=== PATIENT | male | born 1980 | race Hispanic/Latino ===

== ENCOUNTER 2016-11-23 14:34 | Emergency (ER) | payer OTHER ==
[2016-11-23] MEDS ORDERED: Acetaminophen 500 MG TAB ONE (14:52)
[2016-11-23 15:48] LABS: #Basophils 0.1 thou/uL (0.0-0.2); #Eosinphils 0.2 thou/uL (0.0-0.7); #Monocytes 1.1 thou/uL (0.11-0.59); #Neutrophils 10.6 thou/uL (1.40-6.50); %Basophils 0.5 % (0.0-1.0); %Eosinophils 1.7 % (0.0-10.0); %Lymphocytes 7.9 % (21.0-51.0); %Monocytes 8.7 % (0.0-10.0); Hematocrit 53.2 % (42.0-52.0); Mean Platelet Volume 7.9 fL (7.4-10.4); Red Blood Cell (RBC) Count 5.82 mill/uL (4.70-6.10); White Blood Cell (WBC) Count 13.1 thou/uL (4.8-10.8)
--- NOTE | 2016-11-23 15:48 | RAD ---
PORTABLE CHEST ONE VIEW: Date: 11-23-16 Time: 3:38 p.m. History: Cough, fever, flu-like symptoms. FINDINGS: Comparison is made with exam of 03-12-15. The heart size is normal. The lungs are expanded without focal areas of consolidation, pneumothorax, or pleural effusions. IMPRESSION: No radiographic evidence of acute cardiopulmonary process. POS: [facility]
[2016-11-23 16:04] LABS: ALT (SGPT) 22 U/L (8-55); AST (SGOT) 17 U/L (5-34); Alkaline Phosphatase 109 U/L (40-150); Anion Gap 14 mmol/L (10-20); BUN (Urea Nitrogen) 18 mg/dL (8.9-20.6); Bilirubin, Total 0.5 mg/dL (0.2-1.2); Calc. Creatinine Clearance 0 mL/min (70-130); Calcium 10.1 mg/dL (7.8-10.44); Carbon Dioxide 28 mmol/L (22-29); Chloride 99 mmol/L (98-107); Estimated GFR-MDRD 78; Globulin 4.3 g/dL (2.4-3.5); Protein, Total 8.7 g/dL (6.0-8.3)
[2016-11-23] MEDS ORDERED: Ketorolac Tromethamine 30 MG/ML VIAL ONE (16:28)
[2016-11-23] MEDS ORDERED: cefTRIAXone\\ROCEPHIN 2 GM VIAL ONE (16:49)
== END 2016-11-23 17:28 | disposition home or self-care (01) ==
LOC: ERS 14:34
DX: J06.9 Acute upper respiratory infection, unspecified (principal); E78.5 Hyperlipidemia, unspecified; I10 Essential (primary) hypertension; Z79.899 Other long term (current) drug therapy
CPT/HCPCS: 36415; 71010; 80053; 85025; 93005; 96361; 96365; 96375; J0696; J1885

== ENCOUNTER 2016-11-24 10:37 | Outpatient (CLI) | payer OTHER ==
--- NOTE | 2016-11-24 12:35 | RAD ---
LUMBAR SPINE 3 VIEWS: Date: 11/24/16 HISTORY: Low back pain. FINDINGS/IMPRESSION: Comparison made with exam of 12/10/1011. Grade I anterolisthesis of L5 over S1 is stable. Mild degenerative changes in the lower lumbar spine are again seen. No compression fracture or bony destruction is identified. POS: [facility]
== END 2016-11-24 10:38 | disposition home or self-care (01) ==
LOC: RAD-FRANK 10:37
PROVIDERS: ATTEND Nurse Practitioner Family
DX: M54.9 Dorsalgia, unspecified (principal); M47.816 Spondylosis without myelopathy or radiculopathy, lumbar region; M43.17 Spondylolisthesis, lumbosacral region
CPT/HCPCS: 72100

== ENCOUNTER 2017-01-25 21:50 | Emergency (ER) | payer OTHER ==
--- NOTE | 2017-01-25 22:25 | RAD ---
TWO VIEWS FIFTH DIGIT LEFT HAND 01/25/17 HISTORY: Trauma. Finger caught between two boards with left fifth digit pain. AP and lateral views fifth digit left hand is obtained. No evidence of acute fracture, subluxations or bony lesions seen. IMPRESSION: Normal two views fifth digit left hand. POS: [facility]
== END 2017-01-25 23:42 | disposition home or self-care (01) ==
LOC: ERS 21:50
DX: S67.197A Crushing injury of left little finger, initial encounter (principal); E78.5 Hyperlipidemia, unspecified; I10 Essential (primary) hypertension; Z79.899 Other long term (current) drug therapy; W23.1XXA Caught, crushed, jammed, or pinched between stationary objects, initial encounter

== ENCOUNTER 2017-05-25 14:46 | Emergency (ER) | payer OTHER | END 2017-05-25 15:25 | disposition home or self-care (01) | LOC: ERS 14:46 | DX: J06.9 Acute upper respiratory infection, unspecified (principal); E78.5 Hyperlipidemia, unspecified; I10 Essential (primary) hypertension | CPT/HCPCS: 99282 ==

== ENCOUNTER 2017-07-09 21:54 | Emergency (ER) | payer OTHER ==
[2017-07-09] MEDS ORDERED: Lidocaine 1% w/Epinephrine 1:100K 20 ML VIAL ONE (22:36)
== END 2017-07-09 23:10 | disposition home or self-care (01) ==
LOC: ERS 21:54
DX: L02.214 Cutaneous abscess of groin (principal); E78.5 Hyperlipidemia, unspecified; I10 Essential (primary) hypertension; Z79.899 Other long term (current) drug therapy
CPT/HCPCS: 56405; J2001

== ENCOUNTER 2017-07-15 21:44 | Emergency (ER) | payer OTHER ==
[2017-07-15] MEDS ORDERED: Lidocaine 1% w/Epinephrine 1:100K 20 ML VIAL ONE (22:07)
== END 2017-07-15 23:16 | disposition home or self-care (01) ==
LOC: ERS 21:44
DX: L02.31 Cutaneous abscess of buttock (principal); E78.5 Hyperlipidemia, unspecified; I10 Essential (primary) hypertension; Z79.899 Other long term (current) drug therapy
CPT/HCPCS: 10060; J2001

== ENCOUNTER 2017-12-05 11:24 | Emergency (ER) | payer OTHER ==
[2017-12-05] MEDS ORDERED: Metoclopramide HCl 10 MG/2 ML VIAL ONE (13:35)
[2017-12-05 14:14] LABS: #Basophils 0.1 thou/uL (0.0-0.2); #Eosinphils 0.2 thou/uL (0.0-0.7); #Lymphocytes 1.6 thou/uL (1.20-3.40); #Monocytes 0.6 thou/uL (0.11-0.59); #Neutrophils 5.7 thou/uL (1.40-6.50); %Basophils 0.9 % (0.0-1.0); %Eosinophils 1.8 % (0.0-10.0); %Lymphocytes 19.8 % (21.0-51.0); %Monocytes 7.3 % (0.0-10.0); %Neutrophils 70.2 % (42.0-75.0); Hemoglobin 16.3 g/dL (14.0-18.0); Mean Corpuscular HGB CONC 32.9 g/dL (32.0-36.0); Mean Corpuscular Hemoglobin 29.5 pg (27.0-31.0); Mean Corpuscular Volume 89.6 fL (78.0-98.0); Mean Platelet Volume 8.8 fL (7.4-10.4); Platelet Count 298 thou/uL (130-400); RBC Distribution Width 12.1 % (11.5-14.5); Red Blood Cell (RBC) Count 5.53 mill/uL (4.70-6.10); White Blood Cell (WBC) Count 8.2 thou/uL (4.8-10.8)
[2017-12-05 14:32] LABS: ALT (SGPT) 21 U/L (8-55); AST (SGOT) 18 U/L (5-34); Albumin 4.4 g/dL (3.5-5.0); Alkaline Phosphatase 87 U/L (40-150); Anion Gap 12 mmol/L (10-20); BUN (Urea Nitrogen) 13 mg/dL (8.9-20.6); Bilirubin, Total 0.4 mg/dL (0.2-1.2); CK (CPK) 233 U/L (30-200); Calc. Creatinine Clearance 0 mL/min (70-130); Carbon Dioxide 26 mmol/L (22-29); Chloride 104 mmol/L (98-107); Estimated GFR-MDRD Greater than 90; Globulin 3.2 g/dL (2.4-3.5); Glucose 93 mg/dL (70-105); Potassium 4.1 mmol/L (3.5-5.1); Protein, Total 7.6 g/dL (6.0-8.3); Sodium 138 mmol/L (136-145)
[2017-12-05 14:37] LABS: CKMB 3.3 ng/mL (0-6.6); Troponin I Less than 0.010 ng/mL (< 0.028)
== END 2017-12-05 16:05 | disposition home or self-care (01) ==
LOC: ERS 11:24
DX: R42 Dizziness and giddiness (principal); I10 Essential (primary) hypertension; Z79.899 Other long term (current) drug therapy
CPT/HCPCS: 80053; 82553; 84484; 85025; 85379; 93005; 96365; J2765

== ENCOUNTER 2018-01-09 12:25 | Emergency (ER) | payer OTHER ==
[2018-01-09 13:12] LABS: Bilirubin Negative (Negative); Blood, Urine Negative (Negative); Clarity CLEAR (Clear); Glucose, Urine (Dipstick) Negative (Negative); Leukocyte Negative (Negative); Nitrite Negative (Negative); Protein, Urine (Dipstick) Negative (Neg-Trace)
[2018-01-09 13:19] LABS: #Eosinphils 0.5 thou/uL (0.0-0.7); #Lymphocytes 2.1 thou/uL (1.20-3.40); #Monocytes 0.9 thou/uL (0.11-0.59); #Neutrophils 4.9 thou/uL (1.40-6.50); %Basophils 0.5 % (0.0-1.0); %Eosinophils 6.3 % (0.0-10.0); %Lymphocytes 24.7 % (21.0-51.0); %Neutrophils 58.5 % (42.0-75.0); Hemoglobin 16.5 g/dL (14.0-18.0); Mean Corpuscular HGB CONC 33.9 g/dL (32.0-36.0); Mean Corpuscular Hemoglobin 29.9 pg (27.0-31.0); Mean Corpuscular Volume 88.1 fL (78.0-98.0); Mean Platelet Volume 8.7 fL (7.4-10.4); Platelet Count 302 thou/uL (130-400); RBC Distribution Width 12.1 % (11.5-14.5); Red Blood Cell (RBC) Count 5.51 mill/uL (4.70-6.10); White Blood Cell (WBC) Count 8.4 thou/uL (4.8-10.8)
[2018-01-09 13:35] LABS: ALT (SGPT) 30 U/L (8-55); AST (SGOT) 21 U/L (5-34); Albumin 3.9 g/dL (3.5-5.0); Alkaline Phosphatase 100 U/L (40-150); Anion Gap 14 mmol/L (10-20); BUN (Urea Nitrogen) 16 mg/dL (8.9-20.6); Bilirubin, Total 0.4 mg/dL (0.2-1.2); Calc. Creatinine Clearance 0 mL/min (70-130); Calcium 9.6 mg/dL (7.8-10.44); Carbon Dioxide 23 mmol/L (22-29); Chloride 105 mmol/L (98-107); Estimated GFR-MDRD 88; Globulin 3.7 g/dL (2.4-3.5); Glucose 120 mg/dL (70-105); Lipase 35 U/L (8-78); Potassium 4.1 mmol/L (3.5-5.1); Protein, Total 7.6 g/dL (6.0-8.3); Sodium 138 mmol/L (136-145)
== END 2018-01-09 15:37 | disposition home or self-care (01) ==
LOC: ERS 12:25
DX: R10.13 Epigastric pain (principal); E78.5 Hyperlipidemia, unspecified; I10 Essential (primary) hypertension; Z79.899 Other long term (current) drug therapy
CPT/HCPCS: 36415; 80053; 81003; 83690; 85025; 99284

== ENCOUNTER 2018-05-16 20:21 | Emergency (ER) | payer OTHER ==
[2018-05-16] MEDS ORDERED: Ketorolac Tromethamine 60 MG/2 ML VIAL ONE (21:36)
== END 2018-05-16 21:52 | disposition home or self-care (01) ==
LOC: ERS 20:21
DX: M54.5 Low back pain (principal); G89.29 Other chronic pain; E78.5 Hyperlipidemia, unspecified; I10 Essential (primary) hypertension; Z79.899 Other long term (current) drug therapy
CPT/HCPCS: 96372; J1885

== ENCOUNTER 2018-07-01 17:01 | Emergency (ER) | payer OTHER ==
[2018-07-01] MEDS ORDERED: Dexamethasone 4 MG TAB ONE (17:51)
== END 2018-07-01 18:24 | disposition home or self-care (01) ==
LOC: ERS 17:01
DX: M54.42 Lumbago with sciatica, left side (principal); I10 Essential (primary) hypertension; E78.5 Hyperlipidemia, unspecified; Z79.891 Long term (current) use of opiate analgesic
CPT/HCPCS: 99283; J8540

== ENCOUNTER 2018-07-04 10:27 | Outpatient (CLI) | payer OTHER ==
--- NOTE | 2018-07-04 10:58 | RAD ---
LUMBAR SPINE 3 VIEWS: HISTORY: Low back pain COMPARISON: 11/24/2016 FINDINGS: Grade 1 anterolisthesis of L5 over S1 is stable. Degenerative changes in the lumbar spine are again n oted. No compression fracture or bony destruction is identified. There are pars articularis defects at L5.
== END 2018-07-04 10:28 | disposition home or self-care (01) ==
LOC: RAD-FRANK 10:27
PROVIDERS: ATTEND Nurse Practitioner Family
DX: M43.16 Spondylolisthesis, lumbar region (principal)
CPT/HCPCS: 72100

== ENCOUNTER 2018-08-03 21:34 | Emergency (ER) | payer OTHER ==
--- NOTE | 2018-08-03 22:04 | RAD ---
XR Chest 1 View Portable History: Syncope Comparison: Radiograph 2017 Findings: Lungs are clear. No pneumothorax or effusion. Cardiac silhouette and mediastinal contours a re within normal limits. Impression: No acute intrathoracic abnormality.
== END 2018-08-04 00:40 | disposition home or self-care (01) ==
LOC: ERS 21:34
DX: E86.0 Dehydration (principal); I10 Essential (primary) hypertension; E78.5 Hyperlipidemia, unspecified; Z79.82 Long term (current) use of aspirin; Z79.891 Long term (current) use of opiate analgesic; Z79.899 Other long term (current) drug therapy
CPT/HCPCS: 36416; 71045; 93005; 96360; 96361

== ENCOUNTER 2018-10-15 18:35 | Emergency (ER) | payer OTHER ==
[2018-10-15] MEDS ORDERED: Ketorolac Tromethamine 30 MG/ML VIAL ONE (19:08)
== END 2018-10-15 20:00 | disposition home or self-care (01) ==
LOC: ERS 18:35
DX: J02.9 Acute pharyngitis, unspecified (principal); E78.5 Hyperlipidemia, unspecified; E78.00 Pure hypercholesterolemia, unspecified; I10 Essential (primary) hypertension; Z79.899 Other long term (current) drug therapy
CPT/HCPCS: 87081; 87430; 96372; 99283; J1885

== ENCOUNTER 2018-11-12 17:18 | Emergency (ER) | payer OTHER ==
--- NOTE | 2018-11-12 18:03 | RAD ---
Radiograph right foot 3 views: HISTORY: Status post penetrating trauma, stepped on glass FINDINGS: No radiopaque foreign body or subcutaneous emphysema identified. No fracture or dislocation. IMPRESSION: No acute traumatic injury identified.
[2018-11-12] MEDS ORDERED: Bacitracin 1 PK ONE (19:05)
[2018-11-12] MEDS ORDERED: Ibuprofen 200 MG TAB ONE (19:05)
[2018-11-12] MEDS ORDERED: Adacel (T-DAP) 0.5 ML SYRINGE ONE (19:05)
== END 2018-11-12 19:29 | disposition home or self-care (01) ==
LOC: ERS 17:18
DX: S91.331A Puncture wound without foreign body, right foot, initial encounter (principal); E78.5 Hyperlipidemia, unspecified; E78.00 Pure hypercholesterolemia, unspecified; I10 Essential (primary) hypertension; Z79.899 Other long term (current) drug therapy; W18.02XA Striking against glass with subsequent fall, initial encounter
CPT/HCPCS: 90471; 90715

== ENCOUNTER 2018-11-23 13:28 | Emergency (ER) | payer OTHER ==
[2018-11-23] MEDS ORDERED: Acetaminophen 500 MG TAB ONE (13:54)
== END 2018-11-23 14:37 | disposition home or self-care (01) ==
LOC: ERS 13:28
DX: J06.9 Acute upper respiratory infection, unspecified (principal); E78.5 Hyperlipidemia, unspecified; E78.00 Pure hypercholesterolemia, unspecified; I10 Essential (primary) hypertension; Z79.899 Other long term (current) drug therapy
CPT/HCPCS: 99281

== ENCOUNTER 2018-12-04 13:14 | Observation (INO) | payer OTHER ==
[2018-12-04] MEDS ORDERED: Bupivacaine 0.5% 10 ML VIAL ONE (13:26)
[2018-12-04] MEDS ORDERED: Lidocaine 1% (PF) 30 ML VIAL ONE (13:26)
--- NOTE | 2018-12-04 14:08 | RAD ---
3 views of the left third finger: 12/04/2018 COMPARISON: None HISTORY: Injury, trauma, pain FINDINGS: There is prominent soft tissue injury involving the distal aspect of the third digit. The d istal aspect of the third distal phalanx appears exposed. The medial aspect of the distal tuft of the third distal phalanx appears absent suggesting partial amputation. The oblique views suggest a po ssible fracture at the tip of the third distal phalanx, not optimally assessed secondary to overlapping gauze and associated artifact. IMPRESSION: Partial amputation involving the distal aspect of the third digit including a portion of the third distal phalanx and the associated soft tissues.
[2018-12-04] MEDS ORDERED: Gentamicin 80 MG/2 ML VIAL ONE (14:35)
[2018-12-04] MEDS ORDERED: Gentamicin Sulfate 80 MG in Premix Bag 1 BAG IVPB SCH (14:45)
[2018-12-04] MEDS ORDERED: PROPOFOL 200 MG/20 ML VIAL ONE (15:14)
[2018-12-04] MEDS ORDERED: Ondansetron PF 4 MG/2 ML Vial ONE (15:14)
[2018-12-04] MEDS ORDERED: Dexamethasone 20 MG/5 ML VIAL ONE (15:14)
[2018-12-04] MEDS ORDERED: Lidocaine 1% PF 5 ML VIAL ONE (15:14)
[2018-12-04] MEDS ORDERED: Dextrose 5 % And 0.9 % NaCl 1,000 ML IV SCH (19:45)
[2018-12-04] MEDS ORDERED: Bupivacaine PF 0.5% 30 ML VIAL ONE (20:15)
[2018-12-04] MEDS ORDERED: Bacitracin Zinc Ointment 30 gm TUBE ONE (20:15)
[2018-12-04] MEDS ORDERED: Sodium Chloride 0.9% 30 ML ONE (20:15)
[2018-12-04] MEDS ORDERED: Fentanyl 100 MCG/2 ML VIAL ONE ×2 (21:19→23:25)
[2018-12-04 21:30] VITALS: BMI 36.6
[2018-12-04] MEDS ORDERED: Promethazine HCl 25 MG/ML VIAL IM PRN (23:10)
[2018-12-04] MEDS ORDERED: Ondansetron HCl/PF 4 MG/2 ML Vial IVP PRN (23:10)
[2018-12-04] MEDS ORDERED: Promethazine HCl 25 MG/ML VIAL SLOW IVP PRN (23:10)
[2018-12-05] MEDS ORDERED: HYDROcodone/Acetaminophen 7.5/325 mg Tablet PO PRN (00:16)
[2018-12-05] MEDS ORDERED: Ondansetron PF 4 MG/2 ML Vial SLOW IVP PRN (00:16)
[2018-12-05] MEDS ORDERED: Morphine 4 MG/ML VIAL SLOW IVP PRN (00:16)
[2018-12-05] MEDS ORDERED: Ondansetron ODT 4 MG TAB PO PRN (00:17)
[2018-12-05] MEDS ORDERED: Vancomycin HCl 1 GM in Premix Bag 1 BAG IVPB SCH (02:00)
[2018-12-05] MEDS ORDERED: FLU VACC QS2019-20(6MOS UP)/PF 60 MCG/0.5 ML SYRINGE IM ONE (09:00)
[2018-12-05] MEDS ORDERED: Lisinopril 10 MG TAB PO SCH (15:00)
[2018-12-05 15:07] VITALS: TEMP 98.5
[2018-12-05 18:43] VITALS: BP 142/86
[2018-12-06] MEDS ORDERED: Lisinopril 20 MG TAB PO SCH (09:00)
--- NOTE | 2018-12-06 11:06 | OP ---
DATE OF PROCEDURE: 12/04/2018 PREOPERATIVE DIAGNOSES: 1. Left middle finger open distal phalanx fracture. 2. Left middle finger nailbed laceration. 3. Left middle finger full-thickness skin loss, 2 x 1 cm. 4. Open treatment, distal phalanx fracture. PROCEDURES PERFORMED: 1. Debridement of wound. 2. Debridement of bone. 3. Nail bed repair. 4. Full-thickness skin graft, 2 x 1 cm, harvest from the left ipsilateral and anterior antecubital fossa. 5. Open treatment distal phalanx fracture, left middle finger. COMPLICATIONS: None. INJECTABLE: 20 mL of 0.5% Marcaine, 10 given at the digit and 10 at the harvest site for the skin graft. BLOOD LOSS: 20 mL. TOURNIQUET TIME: None. FINDINGS: Full-thickness skin loss with minimal amount of exposed bone and comminuted fracture requiring debridement of material of open fracture. DESCRIPTION OF PROCEDURE: After successful general endotracheal anesthesia, the limb was prepped and draped. The patient had the wound inspected, there was a marked comminuted area of the distal phalanx fracture where he primarily had lost almost all skin except for a small corner fragment that was unstable for fixation, so treatment for this open fracture was excise this bone piece. We then debrided the bone and the skin using the following techniques; 1. Treasure blade. 2. Curette. 3. Pulsavac 3 L with antibiotics inside. 4. Excisional technique. 5. Include the bone. 6. There was no gross infection. We then finished the similar debridement of the soft tissue which was separate because the soft tissue edge was 2 cm proximal to the bone edge, so this was a separate soft tissue debridement. Using the same techniques, we removed denuded skin, however, we added a tenotomy scissor. This also was treated with irrigation. We then realized that the patient had a nail bed laceration that was oblique, Y-shaped and we then repaired it using interrupted 5-0 chromic. Now, the bone was completely covered with soft tissue or nail bed. We then realized we had a 2 x 1 cm defect. We went to the proximal antecubital region, after giving the injection as listed above, harvested an elliptical shape graft that would be appropriate size, defatted it, and placed it on the soft tissue, bringing it up to the nail bed using a running 5-0 chromic. We also had running sutures to attach 360 degrees in all sides, had two bolster stitches put on the radial and ulnar aspect. Once it was placed in appropriate position, we then bolstered officially with Adaptic and bacitracin on top of the graft and mineral oil soaked cotton ball on top of the bacitracin and Adaptic to control the graft and decrease motion for healing potential. We then obtained hemostasis at all sites, we closed the proximal antecubital fossa incision with a running 4-0 chromic and was excellent of opposition. We then just added Dermabond. A bulky dressing was applied both sites along with Kerlix, Nikita wrap, and 4x4s and the patient left the operating room without evidence of anesthetic or operative complication. Job ID: [id number]
== END 2018-12-05 19:28 | disposition home or self-care (01) ==
LOC: ERS 13:14 → SURG A 19:21
PROVIDERS: ADMIT Orthopaedic Surgery Hand Surgery; ATTEND Orthopaedic Surgery Hand Surgery
PROC: 0PBV0ZZ Excision of Left Finger Phalanx, Open Approach (ICD-10-PCS; principal; 2018-12-04)
PROC: 0HQQXZZ Repair Finger Nail, External Approach (ICD-10-PCS; 2018-12-04)
PROC: 0HRGX73 Replacement of Left Hand Skin with Autologous Tissue Substitute, Full Thickness, External Approach (ICD-10-PCS; 2018-12-04)
DX: S62.633B Displaced fracture of distal phalanx of left middle finger, initial encounter for open fracture (principal); I10 Essential (primary) hypertension; E78.00 Pure hypercholesterolemia, unspecified; E78.5 Hyperlipidemia, unspecified; Z79.899 Other long term (current) drug therapy; W24.0XXA Contact with lifting devices, not elsewhere classified, initial encounter
CPT/HCPCS: 64450; 96365; 96366; 96367; G0378; G0390; J0690; J1100; J1580; J2001; J2405; J2704; J3010; J3370; J3490; S0020

== ENCOUNTER 2019-07-29 14:24 | Outpatient (CLI) | payer OTHER ==
--- NOTE | 2019-07-29 15:08 | RAD ---
LUMBAR SPINE 3 VIEWS: Date: 07/29/2019 HISTORY: Pain. COMPARISON: Radiograph dated 07/04/2018. FINDINGS: Low grade levoscoliosis lumbar spine. There are bilateral pars interarticularis defects at L5 with Gr susannah II anterolisthesis of approximately 1.0 cm. Moderate L5-S1 degenerative disc space height loss. IMPRESSION: Slightly progressive L5-S1 anterolisthesis due to pars interarticularis defects. POS: [facility]
== END 2019-07-29 14:25 | disposition home or self-care (01) ==
LOC: RAD-FRANK 14:24
PROVIDERS: ATTEND Nurse Practitioner Family
DX: M46.90 Unspecified inflammatory spondylopathy, site unspecified (principal); M43.17 Spondylolisthesis, lumbosacral region
CPT/HCPCS: 72100

== ENCOUNTER 2019-09-18 13:00 | Outpatient (CLI) | payer OTHER ==
--- NOTE | 2019-09-18 13:27 | RAD ---
EXAM: XR Lumbar Spine Min 4 View PROVIDED CLINICAL HISTORY: Lumbar spondylolisthesis. Low back pain for many years which is gotten worse. Patient now complains o f pain extending down left leg. COMPARISON: 07/29/2019 FINDINGS: Grade 1 anterolisthesis of L5 on S1 is again seen which measures approximately 12 mm. No abnormal tra nslational motion is seen between the flexion-extension views of the lumbar spine. Mild narrowing of the L5-S1 intervertebral disc space is present. Bilateral pars defects are again seen at this leve l. The vertebral body heights are within normal limits. No fracture is seen involving the lumbar spine. Osteophytes are seen anteriorly involving the lower lumbar spine. Views of the lower lumbar spine are overall similar to the prior study. IMPRESSION: Stable spondylolisthesis lumbosacral junction. Mild degenerative changes are seen in the lower lumbar spine.
== END 2019-09-18 13:01 | disposition home or self-care (01) ==
LOC: BICRAD 13:00
DX: M43.16 Spondylolisthesis, lumbar region (principal); M54.30 Sciatica, unspecified side; M79.605 Pain in left leg; M47.816 Spondylosis without myelopathy or radiculopathy, lumbar region; M43.17 Spondylolisthesis, lumbosacral region
CPT/HCPCS: 72110

== ENCOUNTER 2019-11-04 00:24 | Emergency (ER) | payer OTHER ==
[2019-11-04 01:02] LABS: #Basophils 0.1 thou/uL (0.0-0.2); #Eosinphils 1.9 thou/uL (0.0-0.7); #Lymphocytes 3.1 thou/uL (1.20-3.40); #Monocytes 1.1 thou/uL (0.11-0.59); #Neutrophils 6.5 thou/uL (1.40-6.50); %Basophils 1.1 % (0.0-1.0); %Eosinophils 14.6 % (0.0-10.0); %Lymphocytes 24.5 % (21.0-51.0); %Monocytes 8.7 % (0.0-10.0); %Neutrophils 51.2 % (42.0-75.0); Hemoglobin 15.7 g/dL (14.0-18.0); Mean Corpuscular HGB CONC 34.2 g/dL (32.0-36.0); Mean Corpuscular Hemoglobin 30.6 pg (27.0-31.0); Mean Corpuscular Volume 89.4 fL (78.0-98.0); Mean Platelet Volume 8.6 fL (7.4-10.4); Platelet Count 284 thou/uL (130-400); RBC Distribution Width 12.4 % (11.5-14.5); Red Blood Cell (RBC) Count 5.14 mill/uL (4.70-6.10); White Blood Cell (WBC) Count 12.8 thou/uL (4.8-10.8)
[2019-11-04 01:12] LABS: PTT 29.7 sec (22.9-36.1); Prothrombin Time 12.8 sec (12.0-14.7)
[2019-11-04 01:34] LABS: ALT (SGPT) 25 U/L (8-55); AST (SGOT) 21 U/L (5-34); Albumin 3.9 g/dL (3.5-5.0); Alkaline Phosphatase 99 U/L (40-110); Anion Gap 14 mmol/L (10-20); BUN (Urea Nitrogen) 24 mg/dL (8.9-20.6); Bilirubin, Total 0.3 mg/dL (0.2-1.2); Calc. Creatinine Clearance 0 mL/min (70-130); Calcium 8.9 mg/dL (7.8-10.44); Carbon Dioxide 22 mmol/L (22-29); Chloride 105 mmol/L (98-107); Estimated GFR-MDRD Greater than 90; Globulin 3.3 g/dL (2.4-3.5); Glucose 107 mg/dL (70-105); Potassium 3.9 mmol/L (3.5-5.1); Protein, Total 7.2 g/dL (6.0-8.3); Sodium 137 mmol/L (136-145)
--- NOTE | 2019-11-04 07:21 | RAD ---
Exam: Chest one view HISTORY:Chest pain. Comparison: 08/03/2018 FINDINGS: Cardiac silhouette: Normal Aorta: Unremarkable Pulmonary vessels: Normal Costophrenic angles: Clear LUNGS: No masses or consolidation. Pneumothorax: None Osseous abnormalities: None IMPRESSION: No acute cardiopulmonary process.
== END 2019-11-04 03:41 | disposition home or self-care (01) ==
LOC: ERS 00:24
DX: R07.89 Other chest pain (principal); I10 Essential (primary) hypertension; E78.5 Hyperlipidemia, unspecified; K21.9 Gastro-esophageal reflux disease without esophagitis; E78.00 Pure hypercholesterolemia, unspecified; Z79.899 Other long term (current) drug therapy
CPT/HCPCS: 36415; 71045; 80053; 83880; 84484; 85025; 85610; 85730; 93005

== ENCOUNTER 2019-12-21 16:06 | Emergency (ER) | payer OTHER ==
[2019-12-21] MEDS ORDERED: Ibuprofen 200 MG TAB ONE (16:53)
--- NOTE | 2019-12-21 16:53 | RAD ---
XR Chest 1 View Portable HISTORY: Cough COMPARISON: 11/04/2019 FINDINGS: The heart size is normal. The lungs are well expanded without focal areas of consolidation, pneumothorax or pleural effusions. IMPRESSION: No radiographic evidence of acute cardiopulmonary process.
== END 2019-12-21 18:13 | disposition home or self-care (01) ==
LOC: ERS 16:06
DX: B34.9 Viral infection, unspecified (principal); E78.00 Pure hypercholesterolemia, unspecified; E78.5 Hyperlipidemia, unspecified; I10 Essential (primary) hypertension; Z79.899 Other long term (current) drug therapy
CPT/HCPCS: 71045; 87081; 87430; 87804

== ENCOUNTER 2019-12-29 10:20 | Emergency (ER) | payer OTHER ==
[2019-12-29 10:54] LABS: #Eosinphils 0.9 thou/uL (0.0-0.7); #Monocytes 0.8 thou/uL (0.11-0.59); #Neutrophils 5.7 thou/uL (1.40-6.50); %Basophils 0.4 % (0.0-1.0); %Eosinophils 9.4 % (0.0-10.0); %Lymphocytes 21.2 % (21.0-51.0); %Monocytes 8.6 % (0.0-10.0); %Neutrophils 60.4 % (42.0-75.0); Hemoglobin 16.3 g/dL (14.0-18.0); Mean Corpuscular HGB CONC 33.1 g/dL (32.0-36.0); Mean Corpuscular Hemoglobin 29.6 pg (27.0-31.0); Mean Corpuscular Volume 89.6 fL (78.0-98.0); Platelet Count 180 thou/uL (130-400); RBC Distribution Width 12.2 % (11.5-14.5); Red Blood Cell (RBC) Count 5.49 mill/uL (4.70-6.10); White Blood Cell (WBC) Count 9.4 thou/uL (4.8-10.8)
--- NOTE | 2019-12-29 11:11 | RAD ---
Chest AP view INDICATION: Shortness of breath and cough; history of Covid infection COMPARISON: December 21, 2019 FINDINGS: Lungs: There is some crowding of the pulmonary vasculature are within both lower lobes without defin ite acute airspace opacity. Some of this is related to the depth of inspiration. Cardiac silhouette: The cardiomediastinal silhouette appears within normal limits. Pulmonary vasculature: Normal Pleural spaces: No pleural effusion or pneumothorax is demonstrated. Upper abdomen: No abnormality seen. Osseous structures: No acute osseous abnormality. Additional findings: None. IMPRESSION: No acute cardiopulmonary abnormality.
[2019-12-29] MEDS ORDERED: Ketorolac Tromethamine 30 MG/ML VIAL ONE (11:37)
[2019-12-29 12:19] LABS: Albumin 3.4 g/dL (3.5-5.0)
[2019-12-29 12:20] LABS: Chloride 108 mmol/L (98-107); Potassium 3.8 mmol/L (3.5-5.1); Sodium 139 mmol/L (136-145)
[2019-12-29 12:21] LABS: Calcium 8.2 mg/dL (7.8-10.44)
[2019-12-29 12:22] LABS: Globulin 3.3 g/dL (2.4-3.5); Glucose 105 mg/dL (70-105); Protein, Total 6.7 g/dL (6.0-8.3)
[2019-12-29 12:23] LABS: Anion Gap 12 mmol/L (10-20); Bilirubin, Total 0.3 mg/dL (0.2-1.2); Carbon Dioxide 23 mmol/L (22-29)
[2019-12-29 12:24] LABS: Alkaline Phosphatase 97 U/L (40-110)
[2019-12-29 12:25] LABS: Calc. Creatinine Clearance 0 mL/min (70-130); Estimated GFR-MDRD Greater than 90
[2019-12-29 12:26] LABS: BUN (Urea Nitrogen) 16 mg/dL (8.9-20.6)
[2019-12-29 12:27] LABS: ALT (SGPT) 25 U/L (8-55); AST (SGOT) 18 U/L (5-34)
--- NOTE | 2020-01-04 17:08 | EKG ---
Test Reason : Blood Pressure : / mmHG Vent. Rate : 072 BPM Atrial Rate : 072 BPM P-R Int : 184 ms QRS Dur : 102 ms QT Int : 376 ms P-R-T Axes : 020 088 -01 degrees QTc Int : 411 ms Normal sinus rhythm Abnormal QRS-T angle, consider primary T wave abnormality Abnormal ECG Confirmed by MCKINLEY GUALLPA DO ([id number]), development editor MEGAN DOLAN ([id number]) on 01/04/2020 5:07:36 PM Referred By: Confirmed By:MCKINLEY GUALLPA DO
== END 2019-12-29 12:58 | disposition home or self-care (01) ==
LOC: ERS 10:20
DX: U07.1 COVID-19 (principal); R07.9 Chest pain, unspecified; E78.5 Hyperlipidemia, unspecified; E78.00 Pure hypercholesterolemia, unspecified; I10 Essential (primary) hypertension; K21.9 Gastro-esophageal reflux disease without esophagitis; Z79.899 Other long term (current) drug therapy
CPT/HCPCS: 36415; 71045; 80053; 83605; 84484; 85025; 93005; 96374; J1885

== ENCOUNTER 2020-03-02 12:40 | Emergency (ER) | payer OTHER | END 2020-03-02 14:42 | disposition home or self-care (01) | LOC: ERS 12:40 | DX: M54.5 Low back pain (principal); E78.5 Hyperlipidemia, unspecified; E78.00 Pure hypercholesterolemia, unspecified; I10 Essential (primary) hypertension; Z79.899 Other long term (current) drug therapy | CPT/HCPCS: 93005 ==

== ENCOUNTER 2020-04-28 16:41 | Emergency (ER) | payer OTHER ==
[2020-04-28] MEDS ORDERED: Diazepam 5 MG TAB ONE (17:20)
== END 2020-04-28 17:21 | disposition home or self-care (01) ==
LOC: ERS 16:41
DX: S39.012A Strain of muscle, fascia and tendon of lower back, initial encounter (principal); E78.5 Hyperlipidemia, unspecified; I10 Essential (primary) hypertension; Z79.899 Other long term (current) drug therapy; X58.XXXA Exposure to other specified factors, initial encounter
CPT/HCPCS: 99283

== ENCOUNTER 2021-01-23 23:30 | Emergency (ER) | payer OTHER ==
[2021-01-24] MEDS ORDERED: Ciprofloxacin 500 MG TAB ONE (00:02)
[2021-01-24] MEDS ORDERED: metroNIDAZOLE 250 MG TAB ONE (00:02)
[2021-01-24 00:17] LABS: #Basophils 0.1 thou/uL (0.0-0.2); #Eosinphils 0.7 thou/uL (0.0-0.7); #Lymphocytes 2.4 thou/uL (1.20-3.40); #Monocytes 0.9 thou/uL (0.11-0.59); #Neutrophils 7.4 thou/uL (1.40-6.50); %Basophils 1.2 % (0.0-1.0); %Eosinophils 5.7 % (0.0-10.0); %Lymphocytes 21.2 % (21.0-51.0); %Monocytes 8.1 % (0.0-10.0); %Neutrophils 63.8 % (42.0-75.0); Hemoglobin 16.2 g/dL (14.0-18.0); Mean Corpuscular Volume 91.3 fL (78.0-98.0); Mean Platelet Volume 8.2 fL (7.4-10.4); Platelet Count 309 thou/uL (130-400); RBC Distribution Width 12.3 % (11.5-14.5); Red Blood Cell (RBC) Count 5.21 mill/uL (4.70-6.10); White Blood Cell (WBC) Count 11.5 thou/uL (4.8-10.8)
[2021-01-24 00:22] LABS: Bilirubin Negative (Negative); Blood, Urine Negative (Negative); Clarity Clear (Clear); Glucose, Urine (Dipstick) Normal (Negative); Ketone, Urine Negative (Negative); Leukocyte Negative Leu/uL (Negative); Nitrite Negative (Negative); Protein, Urine (Dipstick) Negative (Neg-Trace); Specific Gravity, Urine 1.012 (1.002-1.036); Urobilinogen Normal mg/dL (Less than 2); pH, Urine 6.5 (5.0-9.0)
[2021-01-24 00:47] LABS: ALT (SGPT) 24 U/L (8-55); AST (SGOT) 26 U/L (5-34); Albumin 3.7 g/dL (3.5-5.0); Alkaline Phosphatase 92 U/L (40-110); Anion Gap 15 mmol/L (10-20); BUN (Urea Nitrogen) 13 mg/dL (8.9-20.6); Bilirubin, Total 0.2 mg/dL (0.2-1.2); Calc. Creatinine Clearance 0 mL/min (70-130); Calcium 9.4 mg/dL (7.8-10.44); Carbon Dioxide 20 mmol/L (22-29); Chloride 105 mmol/L (98-107); Globulin 4.1 g/dL (2.4-3.5); Glucose 139 mg/dL (70-105); Lipase 33 U/L (8-78); Potassium 3.9 mmol/L (3.5-5.1); Protein, Total 7.8 g/dL (6.0-8.3); Sodium 136 mmol/L (136-145)
== END 2021-01-24 01:21 | disposition home or self-care (01) ==
LOC: ERS 23:30
DX: K57.92 Diverticulitis of intestine, part unspecified, without perforation or abscess without bleeding (principal); K21.9 Gastro-esophageal reflux disease without esophagitis; E78.5 Hyperlipidemia, unspecified; I10 Essential (primary) hypertension; Z79.82 Long term (current) use of aspirin; Z79.899 Other long term (current) drug therapy
CPT/HCPCS: 36415; 80053; 81003; 83690; 85025; 99284

== ENCOUNTER 2021-07-31 09:13 | Emergency (ER) | payer OTHER ==
[2021-07-31 09:47] LABS: #Basophils 0.1 thou/uL (0.0-0.2); #Eosinphils 0.4 thou/uL (0.0-0.7); #Lymphocytes 2.4 thou/uL (1.20-3.40); #Monocytes 0.9 thou/uL (0.11-0.59); #Neutrophils 4.5 thou/uL (1.40-6.50); %Basophils 0.9 % (0.0-1.0); %Eosinophils 5.3 % (0.0-10.0); %Lymphocytes 29.3 % (21.0-51.0); %Monocytes 10.7 % (0.0-10.0); %Neutrophils 53.9 % (42.0-75.0); Hemoglobin 16.7 g/dL (14.0-18.0); Mean Corpuscular HGB CONC 33.7 g/dL (32.0-36.0); Mean Corpuscular Hemoglobin 30.6 pg (27.0-31.0); Mean Platelet Volume 8.1 fL (7.4-10.4); Platelet Count 279 thou/uL (130-400); RBC Distribution Width 12.3 % (11.5-14.5); Red Blood Cell (RBC) Count 5.46 mill/uL (4.70-6.10); White Blood Cell (WBC) Count 8.3 thou/uL (4.8-10.8)
[2021-07-31] MEDS ORDERED: Ketorolac Tromethamine 30 MG/ML VIAL ONE (09:52)
[2021-07-31 10:07] LABS: ALT (SGPT) 32 U/L (8-55); AST (SGOT) 25 U/L (5-34); Albumin 4.1 g/dL (3.5-5.0); Alkaline Phosphatase 98 U/L (40-110); Anion Gap 12 mmol/L (10-20); BUN (Urea Nitrogen) 19 mg/dL (8.9-20.6); Bilirubin, Total 0.7 mg/dL (0.2-1.2); CK (CPK) 355 U/L (30-200); Calc. Creatinine Clearance 0 mL/min (70-130); Calcium 9.5 mg/dL (7.8-10.44); Carbon Dioxide 27 mmol/L (22-29); Chloride 102 mmol/L (98-107); Globulin 3.6 g/dL (2.4-3.5); Glucose 95 mg/dL (70-105); Lipase 29 U/L (8-78); Potassium 3.8 mmol/L (3.5-5.1); Protein, Total 7.7 g/dL (6.0-8.3); Sodium 137 mmol/L (136-145)
== END 2021-07-31 11:10 | disposition home or self-care (01) ==
LOC: ERS 09:13
DX: S29.011A Strain of muscle and tendon of front wall of thorax, initial encounter (principal); E78.5 Hyperlipidemia, unspecified; E78.00 Pure hypercholesterolemia, unspecified; I10 Essential (primary) hypertension; K21.9 Gastro-esophageal reflux disease without esophagitis; Z79.82 Long term (current) use of aspirin; Z79.899 Other long term (current) drug therapy; X58.XXXA Exposure to other specified factors, initial encounter
CPT/HCPCS: 71045; 80053; 82550; 83690; 84484; 85025; 93005; 96374; J1885

== ENCOUNTER 2021-12-06 10:04 | Emergency (ER) | payer OTHER ==
[2021-12-06 10:56] LABS: #Basophils 0.1 thou/uL (0.0-0.2); #Eosinphils 0.3 thou/uL (0.0-0.7); #Lymphocytes 1.5 thou/uL (1.20-3.40); #Monocytes 0.8 thou/uL (0.11-0.59); #Neutrophils 7.5 thou/uL (1.40-6.50); %Basophils 0.6 % (0.0-1.0); %Eosinophils 3.1 % (0.0-10.0); %Lymphocytes 14.4 % (21.0-51.0); %Monocytes 7.8 % (0.0-10.0); %Neutrophils 74.1 % (42.0-75.0); Hemoglobin 15.9 g/dL (14.0-18.0); Mean Corpuscular HGB CONC 32.8 g/dL (32.0-36.0); Mean Corpuscular Volume 91.5 fL (78.0-98.0); Mean Platelet Volume 8.7 fL (7.4-10.4); Platelet Count 270 thou/uL (130-400); Red Blood Cell (RBC) Count 5.29 mill/uL (4.70-6.10); White Blood Cell (WBC) Count 10.1 thou/uL (4.8-10.8)
[2021-12-06 11:02] LABS: Bilirubin Negative (Negative); Blood, Urine Negative (Negative); Clarity Clear (Clear); Glucose, Urine (Dipstick) Normal (Negative); Ketone, Urine Negative (Negative); Leukocyte Negative Leu/uL (Negative); Nitrite Negative (Negative); Protein, Urine (Dipstick) 70 mg/dL (Neg-Trace); RBC/HPF 0-3 HPF (0-3); Specific Gravity, Urine 1.022 (1.002-1.036); Squamous Epithelial 0-3 HPF (0-3); Urobilinogen Normal mg/dL (Less than 2)
[2021-12-06 11:18] LABS: Bacteria/HPF 1+ HPF (None Seen)
[2021-12-06 11:21] LABS: ALT (SGPT) 26 U/L (8-55); AST (SGOT) 22 U/L (5-34); Albumin 3.9 g/dL (3.5-5.0); Alkaline Phosphatase 89 U/L (40-110); Anion Gap 14 mmol/L (10-20); BUN (Urea Nitrogen) 15 mg/dL (8.9-20.6); Bilirubin, Total 0.4 mg/dL (0.2-1.2); Calc. Creatinine Clearance 0 mL/min (70-130); Calcium 9.4 mg/dL (7.8-10.44); Carbon Dioxide 21 mmol/L (22-29); Chloride 107 mmol/L (98-107); Estimated GFR 117; Globulin 3.4 g/dL (2.4-3.5); Glucose 100 mg/dL (70-105); Potassium 4.7 mmol/L (3.5-5.1); Protein, Total 7.3 g/dL (6.0-8.3); Sodium 137 mmol/L (136-145)
== END 2021-12-06 10:56 | disposition home or self-care (01) ==
LOC: ERS 10:04
DX: S39.012A Strain of muscle, fascia and tendon of lower back, initial encounter (principal); E78.00 Pure hypercholesterolemia, unspecified; E78.5 Hyperlipidemia, unspecified; I10 Essential (primary) hypertension; Z79.899 Other long term (current) drug therapy; X58.XXXA Exposure to other specified factors, initial encounter
CPT/HCPCS: 36415; 80053; 81003; 81015; 85025; 99283

== ENCOUNTER 2021-12-15 09:18 | Emergency (ER) | payer OTHER | END 2021-12-15 11:53 | disposition home or self-care (01) | LOC: ERS 09:18 | DX: B34.9 Viral infection, unspecified (principal); E78.00 Pure hypercholesterolemia, unspecified; E78.5 Hyperlipidemia, unspecified; I10 Essential (primary) hypertension; K21.9 Gastro-esophageal reflux disease without esophagitis; Z79.899 Other long term (current) drug therapy | CPT/HCPCS: 71045 ==

== ENCOUNTER 2021-12-24 11:38 | Emergency (ER) | payer OTHER ==
[~2021-12-24 11:38] MED LIST: Iopamidol-370 76% 500 ML 1 ML ONE
[2021-12-24 12:15] LABS: #Basophils 0.1 thou/uL (0.0-0.2); #Eosinphils 0.2 thou/uL (0.0-0.7); #Lymphocytes 2.5 thou/uL (1.20-3.40); #Neutrophils 9.4 thou/uL (1.40-6.50); %Basophils 0.6 % (0.0-1.0); %Eosinophils 1.6 % (0.0-10.0); %Monocytes 7.8 % (0.0-10.0); %Neutrophils 70.9 % (42.0-75.0); Hemoglobin 16.2 g/dL (14.0-18.0); Mean Corpuscular HGB CONC 32.8 g/dL (32.0-36.0); Mean Corpuscular Hemoglobin 30.2 pg (27.0-31.0); Mean Corpuscular Volume 92.2 fl (78.0-98.0); Mean Platelet Volume 8.5 fL (7.4-10.4); Platelet Count 272 10x3/uL (130-400); Red Blood Cell (RBC) Count 5.37 mill/uL (4.70-6.10); White Blood Cell (WBC) Count 13.3 10x3/uL (4.8-10.8)
[2021-12-24 12:37] LABS: ALT (SGPT) 20 U/L (8-55); AST (SGOT) 17 U/L (5-34); Albumin 3.9 g/dL (3.5-5.0); Alkaline Phosphatase 98 U/L (40-110); Anion Gap 14 mmol/L (10-20); BUN (Urea Nitrogen) 19 mg/dL (8.9-20.6); Bilirubin, Total 0.6 mg/dL (0.2-1.2); Calc. Creatinine Clearance 0 mL/min (70-130); Calcium 9.5 mg/dL (7.8-10.44); Carbon Dioxide 26 mmol/L (22-29); Chloride 103 mmol/L (98-107); Estimated GFR 109; Globulin 3.5 g/dL (2.4-3.5); Glucose 101 mg/dL (70-105); Lipase 21 U/L (8-78); Potassium 4.6 mmol/L (3.5-5.1); Protein, Total 7.4 g/dL (6.0-8.3); Sodium 138 mmol/L (136-145)
== END 2021-12-24 13:50 | disposition home or self-care (01) ==
LOC: ERS 11:38
DX: K57.92 Diverticulitis of intestine, part unspecified, without perforation or abscess without bleeding (principal); Z79.82 Long term (current) use of aspirin
CPT/HCPCS: 36415; 74177; 80053; 83690; 85025; 86140; Q9967

== ENCOUNTER 2021-12-27 01:36 | Inpatient (IN) | payer OTHER ==
[2021-12-27] MEDS ORDERED: Pantoprazole 40 MG VIAL ONE (01:55)
[2021-12-27 02:04] LABS: #Basophils 0.1 thou/uL (0.0-0.2); #Eosinphils 0.5 thou/uL (0.0-0.7); #Lymphocytes 1.9 thou/uL (1.20-3.40); #Monocytes 1.4 thou/uL (0.11-0.59); #Neutrophils 8.6 thou/uL (1.40-6.50); %Basophils 0.4 % (0.0-1.0); %Eosinophils 3.9 % (0.0-10.0); %Neutrophils 69.7 % (42.0-75.0); Hemoglobin 15.9 g/dL (14.0-18.0); Mean Corpuscular HGB CONC 34.7 g/dL (32.0-36.0); Mean Corpuscular Hemoglobin 31.9 pg (27.0-31.0); Mean Platelet Volume 8.6 fL (7.4-10.4); Platelet Count 256 10x3/uL (130-400); RBC Distribution Width 12.1 % (11.5-14.5); Red Blood Cell (RBC) Count 4.99 mill/uL (4.70-6.10); White Blood Cell (WBC) Count 12.3 10x3/uL (4.8-10.8)
[2021-12-27 02:23] LABS: ALT (SGPT) 20 U/L (8-55); AST (SGOT) 16 U/L (5-34); Albumin 3.6 g/dL (3.5-5.0); Alkaline Phosphatase 81 U/L (40-110); Anion Gap 12 mmol/L (10-20); BUN (Urea Nitrogen) 18 mg/dL (8.9-20.6); Bilirubin, Total 0.3 mg/dL (0.2-1.2); Calc. Creatinine Clearance 0 mL/min (70-130); Calcium 8.8 mg/dL (7.8-10.44); Carbon Dioxide 24 mmol/L (22-29); Chloride 105 mmol/L (98-107); Estimated GFR 112; Globulin 3.6 g/dL (2.4-3.5); Glucose 136 mg/dL (70-105); Lipase 23 U/L (8-78); Potassium 3.7 mmol/L (3.5-5.1); Protein, Total 7.2 g/dL (6.0-8.3); Sodium 137 mmol/L (136-145)
[2021-12-27] MEDS ORDERED: Ondansetron PF 4 MG/2 ML Vial ONE (03:58)
[2021-12-27] MEDS ORDERED: Piperacillin/Tazobactam 4.5 GM VIAL ONE (04:58)
[2021-12-27] MEDS ORDERED: Morphine 4 MG/ML VIAL ONE (05:08)
[2021-12-27] MEDS ORDERED: metroNIDAZOLE 500 MG in Premix Bag 1 BAG IVPB SCH (06:00)
[2021-12-27 06:23] VITALS: BMI 39.2
[2021-12-27] MEDS ORDERED: Ondansetron ODT 4 MG TAB SL PRN (06:30)
[2021-12-27] MEDS ORDERED: Acetaminophen 325 MG TAB PO PRN (06:30)
[2021-12-27] MEDS ORDERED: Ondansetron PF 4 MG/2 ML Vial IVP PRN (06:30)
[2021-12-27 07:17] LABS: Bilirubin Negative (Negative); Blood, Urine Negative (Negative); Clarity Clear (Clear); Glucose, Urine (Dipstick) Normal (Negative); Ketone, Urine Negative (Negative); Leukocyte Negative Leu/uL (Negative); Nitrite Negative (Negative); Protein, Urine (Dipstick) Negative (Neg-Trace); Urobilinogen Normal mg/dL (Less than 2); pH, Urine 7.5 (5.0-9.0)
[2021-12-27 07:18] LABS: Specific Gravity, Urine 1.048 (1.002-1.036)
[2021-12-27] MEDS ORDERED: Sodium Chloride 0.9% 1,000 ML IV SCH (08:15)
[2021-12-27] MEDS: Lisinopril 10 MG TAB PO SCH (08:48)
[2021-12-27] MEDS: Sodium Chloride 0.9% 1,000 ML IV SCH ×3 (08:48→22:59)
[2021-12-27] MEDS: Pantoprazole 40 MG VIAL IVP SCH ×2 (08:50→20:24)
[2021-12-27] MEDS: Morphine 4 MG/ML VIAL SLOW IVP PRN (13:33)
[2021-12-27] MEDS: metroNIDAZOLE 500 MG in Premix Bag 1 BAG IVPB SCH ×2 (13:36→22:01)
[2021-12-27] MEDS ORDERED: Iopamidol-370 76% 500 ML 1 ML ONE (14:01)
[2021-12-27] MEDS ORDERED: Ketorolac Tromethamine 30 MG/ML VIAL IVP PRN (19:00)
[2021-12-27] MEDS: Lactated Ringer's 1,000 ML IV SCH (20:22)
[2021-12-27] MEDS: Enoxaparin Sodium 40 MG/0.4 ML SYRINGE SC SCH ×2 (20:24→20:56)
[2021-12-27] MEDS: Atorvastatin Calcium 40 MG TAB PO SCH (20:25)
[2021-12-28] MEDS: Morphine 4 MG/ML VIAL SLOW IVP PRN (01:30)
[2021-12-28] MEDS ORDERED: Promethazine HCl 25 MG in Sodium Chloride 0.9% 50 ML IVPB PRN (03:07)
[2021-12-28] MEDS ORDERED: Promethazine 25 MG TAB PO PRN (03:08)
[2021-12-28 05:28] LABS: #Eosinphils 0.5 thou/uL (0.0-0.7); #Lymphocytes 1.9 thou/uL (1.20-3.40); #Monocytes 1.2 thou/uL (0.11-0.59); #Neutrophils 6.8 thou/uL (1.40-6.50); %Basophils 0.3 % (0.0-1.0); %Eosinophils 4.6 % (0.0-10.0); %Lymphocytes 18.2 % (21.0-51.0); %Monocytes 11.3 % (0.0-10.0); %Neutrophils 65.5 % (42.0-75.0); Hemoglobin 14.4 g/dL (14.0-18.0); Mean Corpuscular HGB CONC 32.7 g/dL (32.0-36.0); Mean Corpuscular Hemoglobin 30.1 pg (27.0-31.0); Mean Corpuscular Volume 92.2 fl (78.0-98.0); Mean Platelet Volume 8.4 fL (7.4-10.4); Platelet Count 281 10x3/uL (130-400); RBC Distribution Width 12.1 % (11.5-14.5); Red Blood Cell (RBC) Count 4.77 mill/uL (4.70-6.10); White Blood Cell (WBC) Count 10.3 10x3/uL (4.8-10.8)
[2021-12-28] MEDS: metroNIDAZOLE 500 MG in Premix Bag 1 BAG IVPB SCH ×3 (05:35→22:03)
[2021-12-28 06:34] LABS: Anion Gap 12 mmol/L (10-20); BUN (Urea Nitrogen) 7 mg/dL (8.9-20.6); Calc. Creatinine Clearance 170 mL/min (70-130); Calcium 9.2 mg/dL (7.8-10.44); Carbon Dioxide 24 mmol/L (22-29); Chloride 105 mmol/L (98-107); Estimated GFR 114; Glucose 94 mg/dL (70-105); Potassium 3.8 mmol/L (3.5-5.1); Sodium 137 mmol/L (136-145)
[2021-12-28] MEDS: Lactated Ringer's 1,000 ML IV SCH ×3 (07:12→19:49)
[2021-12-28] MEDS: Lisinopril 10 MG TAB PO SCH (08:56)
[2021-12-28] MEDS: Polyethylene Glycol 3350 17 GM Packet PO SCH (08:57)
[2021-12-28] MEDS: Senokot S 8.6-50 MG TAB PO SCH ×2 (08:57→19:51)
[2021-12-28] MEDS: Pantoprazole 40 MG VIAL IVP SCH ×2 (08:57→19:51)
[2021-12-28] MEDS: Enoxaparin Sodium 40 MG/0.4 ML SYRINGE SC SCH (19:51)
[2021-12-28] MEDS: Atorvastatin Calcium 40 MG TAB PO SCH (19:51)
[2021-12-29] MEDS: Lactated Ringer's 1,000 ML IV SCH ×3 (02:10→13:26)
[2021-12-29] MEDS: metroNIDAZOLE 500 MG in Premix Bag 1 BAG IVPB SCH ×3 (05:01→22:27)
[2021-12-29] MEDS: Pantoprazole 40 MG VIAL IVP SCH (08:31)
[2021-12-29] MEDS: Lisinopril 10 MG TAB PO SCH (08:32)
[2021-12-29] MEDS: Polyethylene Glycol 3350 17 GM Packet PO SCH (08:40)
[2021-12-29] MEDS: Senokot S 8.6-50 MG TAB PO SCH ×2 (08:40→20:03)
[2021-12-29] MEDS: Enoxaparin Sodium 40 MG/0.4 ML SYRINGE SC SCH (20:03)
[2021-12-29] MEDS: Atorvastatin Calcium 40 MG TAB PO SCH (20:04)
[2021-12-30] MEDS: Lactated Ringer's 1,000 ML IV SCH (03:49)
[2021-12-30] MEDS: metroNIDAZOLE 500 MG in Premix Bag 1 BAG IVPB SCH (05:07)
[2021-12-30 08:00] VITALS: TEMP 97.6
[2021-12-30] MEDS: Lisinopril 10 MG TAB PO SCH (08:23)
[2021-12-30] MEDS: Senokot S 8.6-50 MG TAB PO SCH (08:23)
[2021-12-30 08:24] VITALS: BP 123/85
[2021-12-30] MEDS: Polyethylene Glycol 3350 17 GM Packet PO SCH (09:33)
== END 2021-12-30 12:30 | disposition home or self-care (01) | DRG 379 ==
LOC: ERS 01:36 → MSONC 05:01
PROVIDERS: ADMIT Internal Medicine; ATTEND Family Medicine
DX: K57.21 Diverticulitis of large intestine with perforation and abscess with bleeding (principal); E78.5 Hyperlipidemia, unspecified; I10 Essential (primary) hypertension; Z20.822 Contact with and (suspected) exposure to COVID-19; Z79.82 Long term (current) use of aspirin; Z79.899 Other long term (current) drug therapy
CPT/HCPCS: 36415; 74177; 80048; 80053; 81003; 83690; 85025; 86140; 96374; 96375; C9113; J0744; J1650; J1885; J2270; J2405; J2543; J7050; J7120; Q0169; Q9967; U0003; U0005

== ENCOUNTER 2022-06-26 14:13 | Emergency (ER) | payer OTHER ==
[~2022-06-26 14:13] MED LIST changes: -Iopamidol-370 76% 500 ML 1 ML ONE; +Iopamidol-370 76% 500 ML MDV (1 ML CHARGE) ONE
[2022-06-26 14:37] LABS: #Basophils 0.1 thou/uL (0.0-0.2); #Eosinphils 0.4 thou/uL (0.0-0.7); #Monocytes 0.7 thou/uL (0.11-0.59); #Neutrophils 5.7 thou/uL (1.40-6.50); %Basophils 0.7 % (0.0-1.0); %Eosinophils 4.6 % (0.0-10.0); %Lymphocytes 23.6 % (21.0-51.0); %Monocytes 8.2 % (0.0-10.0); %Neutrophils 62.7 % (42.0-75.0); Hemoglobin 16.9 g/dL (14.0-18.0); Mean Corpuscular Hemoglobin 29.1 pg (27.0-31.0); Mean Corpuscular Volume 88.3 fl (78.0-98.0); Mean Platelet Volume 10.5 fL (7.4-10.4); Platelet Count 334 10x3/uL (130-400); RBC Distribution Width 12.8 % (11.5-14.5); White Blood Cell (WBC) Count 9.1 10x3/uL (4.8-10.8)
[2022-06-26 14:55] LABS: ALT (SGPT) 21 U/L (8-55); AST (SGOT) 20 U/L (5-34); Albumin 4.1 g/dL (3.5-5.0); Alkaline Phosphatase 107 U/L (40-110); Anion Gap 13 mmol/L (10-20); BUN (Urea Nitrogen) 16 mg/dL (8.9-20.6); Bilirubin, Total 0.3 mg/dL (0.2-1.2); Calc. Creatinine Clearance 0 mL/min (70-130); Calcium 9.8 mg/dL (7.8-10.44); Carbon Dioxide 28 mmol/L (22-29); Chloride 102 mmol/L (98-107); Estimated GFR 93; Globulin 3.8 g/dL (2.4-3.5); Glucose 115 mg/dL (70-105); Potassium 4.5 mmol/L (3.5-5.1); Protein, Total 7.9 g/dL (6.0-8.3); Sodium 138 mmol/L (136-145)
[2022-06-26] MEDS ORDERED: Ondansetron PF 4 MG/2 ML Vial ONE (15:13)
[2022-06-26 15:19] LABS: Bilirubin Negative (Negative); Blood, Urine Negative (Negative); Clarity Clear (Clear); Glucose, Urine (Dipstick) Normal (Negative); Ketone, Urine Negative (Negative); Leukocyte Negative Leu/uL (Negative); Nitrite Negative (Negative); Protein, Urine (Dipstick) 10 mg/dL (Neg-Trace); Specific Gravity, Urine 1.025 (1.002-1.036); Urobilinogen Normal mg/dL (Less than 2); pH, Urine 7.5 (5.0-9.0)
== END 2022-06-26 16:10 | disposition home or self-care (01) ==
LOC: ERS 14:13
DX: K57.32 Diverticulitis of large intestine without perforation or abscess without bleeding (principal); E78.5 Hyperlipidemia, unspecified; I10 Essential (primary) hypertension; Z79.899 Other long term (current) drug therapy; Z79.82 Long term (current) use of aspirin
CPT/HCPCS: 36415; 74177; 80053; 81003; 83690; 85025; 96374; J2405; Q9967

== ENCOUNTER 2022-09-21 12:03 | Emergency (ER) | payer OTHER ==
[2022-09-21 13:17] LABS: #Eosinphils 0.4 thou/uL (0.0-0.7); #Monocytes 0.8 thou/uL (0.11-0.59); #Neutrophils 4.7 thou/uL (1.40-6.50); %Basophils 0.5 % (0.0-1.0); %Eosinophils 4.5 % (0.0-10.0); %Lymphocytes 25.3 % (21.0-51.0); %Monocytes 10.2 % (0.0-10.0); %Neutrophils 59.2 % (42.0-75.0); Hematocrit 44.5 % (42.0-52.0); Hemoglobin 14.7 g/dL (14.0-18.0); Mean Corpuscular Hemoglobin 29.2 pg (27.0-31.0); Mean Corpuscular Volume 88.5 fl (78.0-98.0); Mean Platelet Volume 10.4 fL (7.4-10.4); Platelet Count 260 10x3/uL (130-400); RBC Distribution Width 13.2 % (11.5-14.5); Red Blood Cell (RBC) Count 5.03 mill/uL (4.70-6.10)
[2022-09-21] MEDS ORDERED: Ketorolac Tromethamine 30 MG/ML VIAL ONE (13:19)
[2022-09-21 13:43] LABS: ALT (SGPT) 33 U/L (8-55); AST (SGOT) 20 U/L (5-34); Albumin 3.7 g/dL (3.5-5.0); Alkaline Phosphatase 83 U/L (40-110); Anion Gap 11 mmol/L (10-20); BUN (Urea Nitrogen) 18 mg/dL (8.9-20.6); Bilirubin, Total 0.4 mg/dL (0.2-1.2); Calc. Creatinine Clearance 0 mL/min (70-130); Calcium 8.9 mg/dL (7.8-10.44); Carbon Dioxide 22 mmol/L (22-29); Chloride 107 mmol/L (98-107); Estimated GFR 113; Globulin 3.2 g/dL (2.4-3.5); Glucose 105 mg/dL (70-105); Potassium 4.2 mmol/L (3.5-5.1); Protein, Total 6.9 g/dL (6.0-8.3); Sodium 136 mmol/L (136-145)
== END 2022-09-21 15:05 | disposition home or self-care (01) ==
LOC: ERS 12:03
DX: K11.8 Other diseases of salivary glands (principal); R59.9 Enlarged lymph nodes, unspecified; E78.5 Hyperlipidemia, unspecified; I10 Essential (primary) hypertension; Z79.82 Long term (current) use of aspirin; Z79.899 Other long term (current) drug therapy
CPT/HCPCS: 36415; 70491; 80053; 85025; 96374; J1885; Q9967

== ENCOUNTER 2022-11-30 06:06 | Inpatient (IN) | payer OTHER ==
[2022-11-30] MEDS ORDERED: Piperacillin/Tazobactam 3.375 GM VIAL ONE (06:19)
[2022-11-30] MEDS ORDERED: Morphine 4 MG/ML VIAL ONE (06:19)
[2022-11-30] MEDS ORDERED: Ketorolac Tromethamine 30 MG/ML VIAL ONE (06:19)
[2022-11-30] MEDS ORDERED: Ondansetron PF 4 MG/2 ML Vial ONE (06:19)
[2022-11-30 07:15] LABS: #Basophils 0.1 thou/uL (0.0-0.2); #Eosinphils 0.2 thou/uL (0.0-0.7); #Monocytes 1.3 thou/uL (0.11-0.59); #Neutrophils 7.4 thou/uL (1.40-6.50); %Basophils 0.5 % (0.0-1.0); %Eosinophils 2.3 % (0.0-10.0); %Lymphocytes 15.1 % (21.0-51.0); %Monocytes 12.5 % (0.0-10.0); %Neutrophils 69.2 % (42.0-75.0); Hemoglobin 14.9 g/dL (14.0-18.0); Mean Corpuscular HGB CONC 33.9 g/dL (32.0-36.0); Mean Corpuscular Hemoglobin 29.9 pg (27.0-31.0); Mean Corpuscular Volume 88.2 fl (78.0-98.0); Mean Platelet Volume 10.8 fL (7.4-10.4); Platelet Count 273 10x3/uL (130-400); RBC Distribution Width 13.2 % (11.5-14.5); Red Blood Cell (RBC) Count 4.99 mill/uL (4.70-6.10); White Blood Cell (WBC) Count 10.6 10x3/uL (4.8-10.8)
[2022-11-30 07:30] LABS: ALT (SGPT) 21 U/L (8-55); AST (SGOT) 15 U/L (5-34); Alkaline Phosphatase 86 U/L (40-110); Anion Gap 10 mmol/L (10-20); BUN (Urea Nitrogen) 18 mg/dL (8.9-20.6); Bilirubin, Total 0.7 mg/dL (0.2-1.2); Calc. Creatinine Clearance 0 mL/min (70-130); Calcium 8.6 mg/dL (7.8-10.44); Carbon Dioxide 27 mmol/L (22-29); Chloride 102 mmol/L (98-107); Estimated GFR 114; Globulin 2.7 g/dL (2.4-3.5); Glucose 103 mg/dL (70-105); Lipase 12 U/L (8-78); Potassium 3.8 mmol/L (3.5-5.1); Protein, Total 6.7 g/dL (6.0-8.3); Sodium 135 mmol/L (136-145)
[2022-11-30 07:33] LABS: Troponin I Less than 0.010 ng/mL (< 0.028)
[2022-11-30] MEDS ORDERED: Calcium Carbonate 500 MG ChewTAB PO PRN (09:21)
[2022-11-30] MEDS ORDERED: Ondansetron ODT 4 MG TAB PO PRN (09:21)
[2022-11-30] MEDS ORDERED: Ondansetron PF 4 MG/2 ML Vial IVP PRN (09:21)
[2022-11-30] MEDS ORDERED: Acetaminophen 325 MG TAB PO PRN (09:21)
[2022-11-30] MEDS ORDERED: Sodium Chloride 0.9% 1,000 ML IV SCH (09:30)
[2022-11-30] MEDS ORDERED: Iopamidol-370 76% 500 ML MDV (1 ML CHARGE) ONE (09:46)
[2022-11-30] MEDS: NS 0.9% w/ 20 MEQ KCL 1,000 ML/1,000 ML BAG IV SCH ×2 (11:15→23:35)
[2022-11-30] MEDS: cefTRIAXone\\ROCEPHIN 2 GM in Sodium Chloride 0.9% 100 ML IVPB SCH (14:30)
[2022-11-30 15:21] VITALS: BMI 39.8
[2022-11-30] MEDS: Ketorolac Tromethamine 30 MG/ML VIAL IVP PRN ×2 (15:29→21:27)
[2022-11-30] MEDS: metroNIDAZOLE 500 MG in Premix Bag 1 BAG IVPB SCH ×2 (16:17→21:28)
[2022-11-30] MEDS: Atorvastatin Calcium 40 MG TAB PO SCH (21:27)
[2022-11-30] MEDS: Docusate 100 MG CAP PO SCH (21:27)
[2022-11-30] MEDS ORDERED: Morphine 2 MG/ML VIAL SLOW IVP PRN (23:19)
[2022-12-01] MEDS: metroNIDAZOLE 500 MG in Premix Bag 1 BAG IVPB SCH ×3 (05:47→20:58)
[2022-12-01 06:55] LABS: #Eosinphils 0.3 thou/uL (0.0-0.7); #Monocytes 1.2 thou/uL (0.11-0.59); #Neutrophils 5.8 thou/uL (1.40-6.50); %Basophils 0.4 % (0.0-1.0); %Eosinophils 3.4 % (0.0-10.0); %Lymphocytes 21.3 % (21.0-51.0); %Monocytes 13.1 % (0.0-10.0); %Neutrophils 61.4 % (42.0-75.0); Hematocrit 44.7 % (42.0-52.0); Hemoglobin 14.7 g/dL (14.0-18.0); Mean Corpuscular HGB CONC 32.9 g/dL (32.0-36.0); Mean Corpuscular Hemoglobin 29.5 pg (27.0-31.0); Mean Corpuscular Volume 89.8 fl (78.0-98.0); Mean Platelet Volume 10.8 fL (7.4-10.4); Platelet Count 269 10x3/uL (130-400); RBC Distribution Width 13.1 % (11.5-14.5); Red Blood Cell (RBC) Count 4.98 mill/uL (4.70-6.10); White Blood Cell (WBC) Count 9.5 10x3/uL (4.8-10.8)
[2022-12-01 07:22] LABS: ALT (SGPT) 20 U/L (8-55); AST (SGOT) 14 U/L (5-34); Albumin 3.8 g/dL (3.5-5.0); Alkaline Phosphatase 82 U/L (40-110); Anion Gap 11 mmol/L (10-20); BUN (Urea Nitrogen) 13 mg/dL (8.9-20.6); Bilirubin, Total 0.7 mg/dL (0.2-1.2); Calc. Creatinine Clearance 161 mL/min (70-130); Calcium 8.9 mg/dL (7.8-10.44); Carbon Dioxide 26 mmol/L (22-29); Chloride 107 mmol/L (98-107); Estimated GFR 111; Globulin 2.7 g/dL (2.4-3.5); Glucose 94 mg/dL (70-105); Magnesium 2.3 mg/dL (1.6-2.6); Potassium 4.2 mmol/L (3.5-5.1); Protein, Total 6.5 g/dL (6.0-8.3); Sodium 140 mmol/L (136-145)
[2022-12-01] MEDS ORDERED: Non-Formulary Item 1 EACH (Omeprazole [Omeprazole] 40 MG Capsule.Dr) PO SCH (09:00)
[2022-12-01] MEDS: Lisinopril 10 MG TAB PO SCH (10:05)
[2022-12-01] MEDS: Aspirin 81 mg Enteric Coated Tablet PO SCH (10:05)
[2022-12-01] MEDS: Docusate 100 MG CAP PO SCH ×3 (10:05→20:59)
[2022-12-01] MEDS: cefTRIAXone\\ROCEPHIN 2 GM in Sodium Chloride 0.9% 100 ML IVPB SCH (15:18)
[2022-12-01] MEDS: Atorvastatin Calcium 40 MG TAB PO SCH (20:58)
[2022-12-02] MEDS: metroNIDAZOLE 500 MG in Premix Bag 1 BAG IVPB SCH (04:30)
[2022-12-02] MEDS: Aspirin 81 mg Enteric Coated Tablet PO SCH (10:31)
[2022-12-02] MEDS: Lisinopril 10 MG TAB PO SCH (10:31)
[2022-12-02] MEDS: Docusate 100 MG CAP PO SCH (10:31)
[2022-12-02 12:39] VITALS: BP 134/93; TEMP 97.5
== END 2022-12-02 13:12 | disposition home or self-care (01) | DRG 392 ==
LOC: ERS 06:06 → T4-A 08:15
PROVIDERS: ADMIT Internal Medicine; ATTEND Internal Medicine
DX: K57.32 Diverticulitis of large intestine without perforation or abscess without bleeding (principal); E87.1 Hypo-osmolality and hyponatremia; E86.0 Dehydration; I10 Essential (primary) hypertension; K21.9 Gastro-esophageal reflux disease without esophagitis; G89.29 Other chronic pain; E78.5 Hyperlipidemia, unspecified; Z79.82 Long term (current) use of aspirin; Z79.899 Other long term (current) drug therapy
CPT/HCPCS: 36415; 74177; 80053; 83605; 83690; 83735; 84484; 85025; 87040; J0696; J1885; J2270; J2272; J2405; J2543; J3480; J3490; Q9967

== ENCOUNTER 2023-04-27 19:14 | Emergency (ER) | payer OTHER ==
[2023-04-27 20:11] LABS: #Basophils 0.1 thou/uL (0.0-0.2); #Eosinphils 0.5 thou/uL (0.0-0.7); #Monocytes 1.1 thou/uL (0.11-0.59); #Neutrophils 8.4 thou/uL (1.40-6.50); %Basophils 0.6 % (0.0-1.0); %Eosinophils 3.8 % (0.0-10.0); %Lymphocytes 15.4 % (21.0-51.0); %Monocytes 9.5 % (0.0-10.0); %Neutrophils 70.3 % (42.0-75.0); Hematocrit 43.8 % (42.0-52.0); Mean Corpuscular HGB CONC 34.2 g/dL (32.0-36.0); Mean Corpuscular Hemoglobin 30.3 pg (27.0-31.0); Mean Corpuscular Volume 88.5 fl (78.0-98.0); Mean Platelet Volume 10.4 fL (7.4-10.4); Platelet Count 283 10x3/uL (130-400); RBC Distribution Width 13.2 % (11.5-14.5); Red Blood Cell (RBC) Count 4.95 mill/uL (4.70-6.10)
[2023-04-27 20:41] LABS: ALT (SGPT) 26 U/L (8-55); AST (SGOT) 20 U/L (5-34); Albumin 3.8 g/dL (3.5-5.0); Alkaline Phosphatase 85 U/L (40-110); Anion Gap 10 mmol/L (10-20); BUN (Urea Nitrogen) 23 mg/dL (8.9-20.6); Bilirubin, Total 0.6 mg/dL (0.2-1.2); Calc. Creatinine Clearance 0 mL/min (70-130); Calcium 8.9 mg/dL (7.8-10.44); Carbon Dioxide 24 mmol/L (22-29); Chloride 104 mmol/L (98-107); Estimated GFR 112; Glucose 102 mg/dL (70-105); Lipase 39 U/L (8-78); Potassium 3.6 mmol/L (3.5-5.1); Protein, Total 6.8 g/dL (6.0-8.3); Sodium 134 mmol/L (136-145)
== END 2023-04-27 21:08 | disposition home or self-care (01) ==
LOC: ERS 19:14
DX: K57.32 Diverticulitis of large intestine without perforation or abscess without bleeding (principal); I10 Essential (primary) hypertension; E78.5 Hyperlipidemia, unspecified; K21.9 Gastro-esophageal reflux disease without esophagitis; Z79.899 Other long term (current) drug therapy
CPT/HCPCS: 36415; 74177; 80053; 83690; 85025

== ENCOUNTER 2023-06-26 07:49 | Emergency (ER) | payer OTHER | END 2023-06-26 08:25 | disposition home or self-care (01) | LOC: ERS 07:49 | DX: S60.512A Abrasion of left hand, initial encounter (principal); S60.511A Abrasion of right hand, initial encounter; S60.411A Abrasion of left index finger, initial encounter; I10 Essential (primary) hypertension; E78.5 Hyperlipidemia, unspecified; K21.9 Gastro-esophageal reflux disease without esophagitis; W55.03XA Scratched by cat, initial encounter; Z79.899 Other long term (current) drug therapy | CPT/HCPCS: 99282 ==

== ENCOUNTER 2023-07-27 05:17 | Emergency (ER) | payer OTHER ==
[2023-07-27] MEDS ORDERED: Acetaminophen 500 MG TAB ONE (06:33)
[2023-07-27] MEDS ORDERED: Ketorolac Tromethamine 30 MG (1 mL) VIAL ONE (06:33)
== END 2023-07-27 06:58 | disposition home or self-care (01) ==
LOC: ERS 05:17
DX: M54.50 Low back pain, unspecified (principal); I10 Essential (primary) hypertension; W19.XXXA Unspecified fall, initial encounter
CPT/HCPCS: 72100; 96374; J1885

== ENCOUNTER 2023-11-09 09:01 | Inpatient (IN) | payer OTHER ==
[2023-11-08 14:58] VITALS: BMI 41.8
[2023-11-09] MEDS ORDERED: Rocuronium Bromide 10 MG/ML (10ML VIAL) ONE (09:17)
[2023-11-09] MEDS ORDERED: Lidocaine 1% PF 5 ML VIAL ONE (09:18)
[2023-11-09] MEDS ORDERED: PROPOFOL 20 ML ONE (09:18)
[2023-11-09] MEDS ORDERED: Midazolam HCl 2 mg/2 ml Vial ONE (09:18)
[2023-11-09] MEDS ORDERED: fentaNYL PF 100 MCG/2 ML SYRINGE ONE (09:18)
[2023-11-09 10:19] LABS: #Basophils 0.05 10x3/uL (0.0-0.2); %Basophils 0.6 % (0.0-1.0); %Eosinophils 2.8 % (0.0-10.0); %Lymphocytes 22.4 % (21.0-51.0); %Monocytes 10.3 % (0.0-10.0); %Neutrophils 63.4 % (42.0-75.0); Hematocrit 46.9 % (42.0-52.0); Hemoglobin 16.1 g/dL (14.0-18.0); Mean Corpuscular HGB CONC 34.3 g/dL (32.0-36.0); Mean Corpuscular Hemoglobin 29.3 pg (27.0-31.0); Mean Corpuscular Volume 85.4 fL (78.0-98.0); Platelet Count 317 10x3/uL (130-400); Red Blood Cell (RBC) Count 5.49 mill/uL (4.70-6.10)
[2023-11-09 10:33] LABS: PTT 29.1 sec (22.9-36.1)
[2023-11-09] MEDS ORDERED: CEFAZOLIN 2 GM VIAL ONE (10:34)
[2023-11-09] MEDS ORDERED: Sodium Chloride 0.9% 0 ML ONE (10:34)
[2023-11-09 10:39] LABS: Anion Gap 12 mmol/L (10-20); BUN (Urea Nitrogen) 20 mg/dL (8.9-20.6); Calc. Creatinine Clearance 176 mL/min (70-130); Calcium 9.2 mg/dL (7.8-10.44); Carbon Dioxide 24 mmol/L (22-29); Chloride 105 mmol/L (98-107); Estimated GFR 112; Glucose 104 mg/dL (70-105); Potassium 3.8 mmol/L (3.5-5.1); Sodium 137 mmol/L (136-145)
[2023-11-09] MEDS ORDERED: Ketamine In 0.9 % NaCl 50 MG/5 ML SYRINGE ONE (11:30)
[2023-11-09] MEDS ORDERED: Ondansetron PF 4 MG/2 ML Vial ONE (11:44)
[2023-11-09] MEDS ORDERED: Dexamethasone 20 MG/5 ML VIAL ONE (11:44)
[2023-11-09] MEDS ORDERED: Dexmedetomidine 200 MCG/2 ML VIAL ONE (12:28)
[2023-11-09] MEDS ORDERED: PHENYLEPHRINE-NS 100 MCG/ML 10 ML SYRINGE ONE (13:10)
[2023-11-09] MEDS ORDERED: Thrombin 5000 UNITS/5 ML VIAL ONE (14:43)
[2023-11-09] MEDS ORDERED: Vancomycin 1 GM VIAL ONE (14:43)
[2023-11-09] MEDS ORDERED: CEFAZOLIN 1 GM VIAL ONE (15:22)
[2023-11-09] MEDS ORDERED: Ketorolac Tromethamine 30 MG (1 mL) VIAL ONE (15:27)
[2023-11-09] MEDS ORDERED: HYDROmorphone 2 MG/ML VIAL ONE (15:28)
[2023-11-09] MEDS ORDERED: NEOSTIGMINE 3 MG/3 ML SYRINGE ONE (16:05)
[2023-11-09] MEDS ORDERED: Glycopyrrolate 0.2 MG/ML 5 ML SYRINGE ONE (16:05)
[2023-11-09] MEDS ORDERED: Acetaminophen 325 MG TAB PO PRN (16:29)
[2023-11-09] MEDS ORDERED: Ondansetron PF 4 MG/2 ML Vial IVP PRN ×2 (16:29→16:57)
[2023-11-09] MEDS ORDERED: Mag-Al 1200 mg/1200 mg/30 ML UDCUP PO PRN (16:29)
[2023-11-09] MEDS ORDERED: Milk Of Magnesia 30 ML UDCUP PO PRN (16:29)
[2023-11-09] MEDS ORDERED: diphenhydrAMINE 25 MG CAP PO PRN ×2 (16:29→16:57)
[2023-11-09] MEDS ORDERED: fentaNYL 50 mcg/mL 1 mL Vial ONE ×2 (16:42→17:18)
[2023-11-09] MEDS ORDERED: Naloxone HCl 0.4 mg/ml Vial IV PRN (16:57)
[2023-11-09] MEDS ORDERED: diphenhydrAMINE 50 MG/ML VIAL IM PRN (16:57)
[2023-11-09] MEDS ORDERED: Promethazine HCl 25 MG/ML VIAL IM PRN (16:57)
[2023-11-09] MEDS ORDERED: diphenhydrAMINE 50 MG/ML VIAL IVP PRN (16:57)
[2023-11-09] MEDS ORDERED: HYDROmorphone/PF 10 MG in Sodium Chloride 0.9% 99 ML IV PRN (16:57)
[2023-11-09] MEDS ORDERED: Communication Order-Pharmacy FS SCH (17:00)
[2023-11-09] MEDS: Sodium Chloride 0.9% 1,000 ML IV SCH (21:09)
[2023-11-09] MEDS: Gabapentin 300 MG CAP PO SCH (21:09)
[2023-11-09] MEDS: CEFAZOLIN 2 GM in Sodium Chloride 0.9% 100 ML IVPB SCH (21:10)
[2023-11-09] MEDS: hydrALAZINE 20 MG/ML VIAL SLOW IVP PRN (21:34)
[2023-11-10 05:31] LABS: #Basophils Less than 0.03 10x3/uL (0.0-0.2); #Eosinphils Less than 0.03 10x3/uL (0.0-0.7); %Basophils 0.1 % (0.0-1.0); %Lymphocytes 6.5 % (21.0-51.0); %Monocytes 9.7 % (0.0-10.0); Hematocrit 40.7 % (42.0-52.0); Hemoglobin 13.8 g/dL (14.0-18.0); Mean Corpuscular HGB CONC 33.9 g/dL (32.0-36.0); Mean Corpuscular Volume 85.5 fL (78.0-98.0); Mean Platelet Volume 10.6 fL (7.4-10.4); Platelet Count 309 10x3/uL (130-400); RBC Distribution Width 13.3 % (11.5-14.5); Red Blood Cell (RBC) Count 4.76 mill/uL (4.70-6.10)
[2023-11-10 05:45] LABS: Anion Gap 13 mmol/L (10-20); BUN (Urea Nitrogen) 22 mg/dL (8.9-20.6); Calc. Creatinine Clearance 167 mL/min (70-130); Calcium 8.5 mg/dL (7.8-10.44); Carbon Dioxide 24 mmol/L (22-29); Chloride 104 mmol/L (98-107); Estimated GFR 110; Glucose 141 mg/dL (70-105); Potassium 3.6 mmol/L (3.5-5.1); Sodium 137 mmol/L (136-145)
[2023-11-10] MEDS ORDERED: Diazepam 5 MG TAB PO PRN (07:37)
[2023-11-10] MEDS ORDERED: HYDROcodone/Acetaminophen 5/325 mg Tablet PO PRN (07:37)
[2023-11-10] MEDS ORDERED: Morphine 2 MG/ML VIAL SLOW IVP PRN (07:38)
[2023-11-10] MEDS: Lisinopril 10 MG TAB PO SCH (08:06)
[2023-11-10] MEDS: Pantoprazole DR 40 MG TAB PO SCH (08:07)
[2023-11-10] MEDS: Atorvastatin Calcium 40 MG TAB PO SCH (08:07)
[2023-11-10] MEDS: tiZANidine HCl 4 MG TAB PO PRN (12:40)
[2023-11-10] MEDS: Acetaminophen/Codeine 30-300mg Tablet PO PRN (12:40)
[2023-11-10] MEDS: HYDROcodone/Acetaminophen 5/325 mg Tablet PO PRN (14:31)
[2023-11-11] MEDS ORDERED: Iopamidol 370 76% 100 ML VIAL ONE (09:17)
[2023-11-11 11:37] VITALS: BP 136/76; TEMP 99.3
[2023-11-11] MEDS ORDERED: traMADol HCl 50 MG TAB PO PRN (12:51)
== END 2023-11-11 14:37 | disposition home or self-care (01) | DRG 460 ==
LOC: SDC 09:01 → SURG A 18:29 → OBSVTOIN 11-10 07:40
PROVIDERS: ADMIT Surgery; ATTEND Surgery
PROC: 0SG0071 Fusion of Lumbar Vertebral Joint with Autologous Tissue Substitute, Posterior Approach, Posterior Column, Open Approach (ICD-10-PCS; principal; 2023-11-09)
PROC: 0SG3071 Fusion of Lumbosacral Joint with Autologous Tissue Substitute, Posterior Approach, Posterior Column, Open Approach (ICD-10-PCS; 2023-11-09)
PROC: 0SB20ZZ Excision of Lumbar Vertebral Disc, Open Approach (ICD-10-PCS; 2023-11-09)
PROC: 01NB0ZZ Release Lumbar Nerve, Open Approach (ICD-10-PCS; 2023-11-09)
PROC: 01NR0ZZ Release Sacral Nerve, Open Approach (ICD-10-PCS; 2023-11-09)
DX: M48.062 Spinal stenosis, lumbar region with neurogenic claudication (principal); M43.16 Spondylolisthesis, lumbar region; M54.16 Radiculopathy, lumbar region
CPT/HCPCS: 36415; 71275; 80048; 85025; 85610; 85730; 86850; 86900; 86901; 93005; 93010; 93970; 96374; 96375; 96376; A6258; C1713; C1889; G0378; J0360; J0690; J1100; J1170; J1885; J2250; J2405; J2704; J3010; J3370; J3490; J7030; Q9967